=== PATIENT | male | born 1990 | race Caucasian/White ===

== ENCOUNTER 2020-02-02 18:50 | Emergency (ER) | payer MEDICAID ==
[~2020-02-02] VITALS: Ht 167.6 cm; Wt 122.5 kg
[2020-02-02 18:56] VITALS: BP 109/73
[2020-02-02 19:33] VITALS: BP 105/71
== END 2020-02-02 19:33 | disposition home or self-care (01) ==
LOC: MED 18:50
DX: G51.0 Bell's palsy (principal); R73.03 Prediabetes; R03.0 Elevated blood-pressure reading, without diagnosis of hypertension
CPT/HCPCS: 99283

== ENCOUNTER 2021-06-26 23:39 | Emergency (ER) | payer MEDICAID ==
[~2021-06-26] VITALS: Ht 167.6 cm; Wt 111.6 kg
[2021-06-26 23:48] VITALS: BP 130/92
[2021-06-27 00:38] LABS: BASOPHILS # (AUTO) 0.1 K/uL (0.00-0.22); BASOPHILS % (AUTO) 1.2 % (0.0-2.0); EOSINOPHILS # (AUTO) 0.3 K/uL (0-0.4); EOSINOPHILS % (AUTO) 3.3 % (0.0-4.0); HEMATOCRIT 39.9 % (36-52); HEMOGLOBIN 13.6 g/dL (12.0-18.0); LYMPHOCYTES # (AUTO) 2.8 K/uL (2.0-11.5); LYMPHOCYTES % (AUTO) 36.7 % (20.5-51.1); MEAN CORPUSCULAR HEMOGLOBIN 29 pg (27-31); MEAN CORPUSCULAR HGB CONC 34 g/dL (33-37); MONOCYTES # (AUTO) 0.6 K/uL (0.8-1.0); MONOCYTES % (AUTO) 7.5 % (1.7-9.3); NEUTROPHILS # (AUTO) 3.9 K/uL (1.8-7.7); NEUTROPHILS % (AUTO) 51.3 % (42.2-75.2); PLATELET COUNT (AUTO) 309 K/uL (140-450); RED BLOOD CELL COUNT(AUTO) 4.69 MIL/uL (4.20-6.10); RED CELL DISTRIBUTION WIDTH 13.1 % (11.6-13.7); WHITE BLOOD COUNT (AUTO) 7.7 K/uL (4.8-10.8)
--- NOTE | 2021-06-27 00:47 | NUR ---
XR AT BEDSIDE
[2021-06-27 00:56] LABS: ALBUMIN 3.4 g/dL (3.4-5.0); CARBON DIOXIDE 26.9 mmol/L (21-32); MAGNESIUM 1.7 mg/dL (1.8-2.4); POTASSIUM 3.9 mmol/L (3.5-5.1); TOTAL BILIRUBIN 0.6 mg/dL (0.0-1.0)
[2021-06-27] MEDS ORDERED: NACL 0.9% 1,000 ML IV ONE (01:10)
--- NOTE | 2021-06-27 01:14 | NUR ---
PATIENT AMBULATED TO THE BATHROOM WITH A STEADY GAIT AND ASKED FOR URINE.
[2021-06-27 01:36] LABS: APPEARANCE,URINE CLEAR (CLEAR); BILIRUBIN,URINE NEGATIVE (NEGATIVE); BLOOD, URINE NEGATIVE (NEGATIVE); COLOR,URINE YELLOW (YELLOW); LEUKOCYTE ESTERASE ,URINE NEGATIVE (NEGATIVE); NITRITE, URINE NEGATIVE (NEGATIVE); UGLUCOSE 3+ (NEGATIVE)
--- NOTE | 2021-06-27 03:11 | NUR ---
Patient appears to be resting comfortably in bed-semifowlers and eyes closed. Vital Signs within normal limits. Respirations even and unlabored. Safety measures are in place, attached to monitor, and will continue to monitor patient.
--- NOTE | 2021-06-27 05:08 | NUR ---
Patient discharged with v/s stable. Written and verbal after care instructions given and explained. Patient verbalized understanding. Ambulatory with steady gait. ID band removed. All questions addressed prior to discharge. Advised to follow up with PMD.
[2021-06-27 05:09] VITALS: BP 119/62
== END 2021-06-27 05:08 | disposition home or self-care (01) ==
LOC: MED 23:39
DX: R73.9 Hyperglycemia, unspecified (principal); R42 Dizziness and giddiness; R53.1 Weakness; I10 Essential (primary) hypertension
CPT/HCPCS: 36415; 71045; 80053; 81003; 82009; 82948; 83735; 84484; 85025; 93005; 96360; 99285; J7030; Q0092

== ENCOUNTER 2021-12-15 06:07 | Emergency (ER) | payer MEDICAID ==
[~2021-12-15] VITALS: Ht 167.6 cm; Wt 124.4 kg
[2021-12-15 06:12] VITALS: BP 158/77
--- NOTE | 2021-12-15 06:18 | NUR ---
pt to [facility]
[2021-12-15] MEDS ORDERED: DEXAMETHASONE 4 MG/ML VIAL PO ONE (06:20)
[2021-12-15] MEDS ORDERED: AMOXIL/CLAVULANATE 875/125 MG 1 TAB PO ONE (06:20)
[2021-12-15] MEDS ORDERED: AMOX-1230 PO (06:22)
[2021-12-15 06:43] VITALS: BP 158/77
--- NOTE | 2021-12-15 06:43 | NUR ---
Patient discharged with v/s stable. Written and verbal after care instructions given and explained. Patient alert, oriented and verbalized understanding of instructions. Ambulatory with steady gait. All questions addressed prior to discharge. ID band removed. Patient advised to follow up with PMD. Rx of amox-clav given. Patient educated on indication of medication including possible reaction and side effects. Opportunity to ask questions provided and answered.
== END 2021-12-15 06:43 | disposition home or self-care (01) ==
LOC: MED 06:07
DX: J02.9 Acute pharyngitis, unspecified (principal)
CPT/HCPCS: 87081; 99283; J1100